=== PATIENT | female | born 2000 | race Caucasian/White ===

== ENCOUNTER 2024-11-17 10:50 | Emergency (ER) | payer OTHER, SELFPAY ==
--- NOTE | ~2024-11-17 | US_ITS ---
US pelvic complete w TV Ordering provider: Noelle Christie PA-C History: . LLQ pain, abnl vag bleeding, hx PCOS . Comparison: None. Technique: Transabdominal and endovaginal ultrasound of the pelvis (Doppler ultrasound interrogation techniques used as needed for this exam.) FINDINGS: CERVIX: Normal. UTERUS: Measures 7.6x 4.7x 3.5 cm in length which is within normal limits and is anteverted. No myom etrial masses. ENDOMETRIUM: Normal in thickness measuring 2.8 mm. (Note: the premenopausal endometrium may measure u p to 16 mm when in the secretory phase.) No endometrial masses, cysts or fluid. CUL DE SAC: No free fluid. RIGHT OVARY: Normal in size measuring 2.6x 2.1x 2.3 cm. Normal echotexture. Doppler vascular flow pre sent. Follicles are noted. LEFT OVARY: Normal in size measuring 2.9x 2.2x 1.8 cm. Normal echotexture. Doppler vascular flow pres ent. Follicles are noted. ADNEXA: Normal. No mass. IMPRESSION: normal pelvic ultrasound. Reviewed, dictated and finalized at location A. IMPRESSION: normal pelvic ultrasound.
--- OUTSIDE RECORDS SUMMARY | 2024-11-17 10:53 | XMS_ITS | Encounter Summary ---
Author Organization [facility] Address [facility] [place] [address] Care Team Providers Care Jeweler Apprentice Name Role Phone Abdi Jaquez CITY PLANNING AIDE-C Primary Care Provider [phone] Judah Joshi MD Primary Care Provider [phone] Sunil Valdovinos PA-C Primary Care Provider [phone] Encounter Details Date Type Department Care Team (Late st Contact Info) Description 10/08/[address] [facility] Conversion [address] [place] [address] , Generic Conversion, Social History Tobacco Use Types Packs/Day Years Used Date Smoking Tobacco: Never Assessed Comments Unknown Sex and Gender Information Value Date Recorded Sex Assigned at Female 06/07/2024 1:24 PM AIR ANTISUBMARINE OFFICER Legal Sex Female 5:55 PM AIR ANTISUBMARINE OFFICER Gender Identity Not on file Sexual Orientation Not on file documented as of this encounter Plan of Treatment Not on file documented as of this encounter Visit Diagnoses Not on filedocumented in this encounter Additional Health Concerns Infection Onset Date Last Indicated Resolved Time COVID-19 Rule Out 03/15/2020 03/15/2020 05/14/2020 12:34 AM AIR ANTISUBMARINE OFFICER COVID-19 Rule Out 05/13/2023 05/13/2023 05/14/2023 10:24 AM AIR ANTISUBMARINE OFFICER COVID-19 Confirmed 05/13/2023 05/13/2023 12:32 AM AIR ANTISUBMARINE OFFICER COVID-19 Rule Out 06/07/2024 06/07/2024 06/07/2024 1:38 PM AIR ANTISUBMARINE OFFICER Influenza - Seasonal 06/07/2024 06/07/2024 025 12:32 AM AIR ANTISUBMARINE OFFICER documented as of this encounter Care Teams Jeweler Apprentice Relationship Specialty Start Date End Date Abdi Jaquez, CITY PLANNING AIDE-C [address] [place] [phone] PCP - General NURSE PRACTITIONER 03/15/20 07/20/22 Judah Joshi MD [address] [place] [phone] PCP - General FAMILY PRACTICE 07/21/22 02/23/23 Sunil Valdovinos PA-C [address] [place] [phone] PCP - General PHYSICIAN REJECTOR 02/24/23 documented as of this encounter
--- OUTSIDE RECORDS SUMMARY | 2024-11-17 10:53 | XMS_ITS | Clinical Summary ---
Author Organization [facility] Address [address] [place] [address] Care Team Providers Care Demand Equipment Repairer Name Role Phone Sunil Valdovinos PA-C Primary Care Provider [phone] Allergies Active Allergy Reactions Criticality Noted Date Comments Cefdinir Rash Low 02/04/2023 Taking for UTI and made symptoms worse, last taken about a year ago Doxycycline Other (see comment) 03/15/2020 Vomiting ears ring Medications amoxicillin (AMOXIL) 500 MG tablet Take 1 tablet (500 mg total) by mouth 2 (two) times daily. Active traMADol (ULTRAM) 50 MG tablet Take 1 tablet (50 mg total) by mouth every 6 (six) hours as needed for Pain. Active oxyCODONE immediate release (ROXICODONE) 5 MG immediate release tabletIndicatio ns:Acute Pain < 7 Day Supply Take 1 tablet (5 mg total) by mouth every 6 (six) hours as needed for Pain. Indications: Acute Pain < 7 Day Supply 28 tablet 5 Active naloxone (NARCAN) 4 MG/0.1ML nasal spray 1 spray by Nasal route as needed for Opioid reversal. may repeat every 2 to 3 minutes in alternating nostrils until medical assistance becomes available 1 each 5 07/11/19 26 Active Active Problems No known active problems Family History Medical History Relation Comments Alcohol/Drug Father Alcohol/Drug Mother Asthma Mother Fibromyalgia Mother Relation Status Comments Father Alive Mother Alive Social History Tobacco Use Types Packs/Day Years Used Date Smoking Tobacco: Never Smokeless Tobacco: Never Tobacco Cessation:Counseling Given: Not Answered Comments:Pt aware not to use marijuana 24hrs prior to dos Alcohol Use Standard Drinks/Week Comments Not Currently 0 (1 standard drink = 0.6 oz pur e alcohol) rare AUDIT-C Answer Date Recorded Q1: How often do you have a drink containing alc ohol? Never 03/15/2020 Average Number of Drinks Not on file 020 Frequency of Binge Drinking Not on file 03/03 Comments No Sex and Gender Information Value Date Recorded Sex Assigned at Female 06/07/2024 1:24 PM LOOM SETTER FOURDRINIER Legal Sex Female 5:55 PM LOOM SETTER FOURDRINIER Gender Identity Not on file Sexual Orientation Not on file Last Filed Vital Signs Vital Sign Reading Time Taken Comments Blood Pressure 135/92 07/10/2024 1:44 PM CDT Pulse 84 07/10/2024 1:54 PM CDT Temperature 36 C (96.8 F) 07/10/2024 12:44 PM CDT Respiratory Rate 18 07/10/2024 1:54 PM CDT Oxygen Saturation 95% 07/10/2024 1:54 PM CDT Inhaled Oxygen Concentration - - Weight 95.3 kg (210 lb) 07/10/2024 8:19 AM CDT Height 160 cm (5' 2.99) 07/10/2024 8:19 AM CDT Body Mass Index 37.21 07/10/2024 8:19 AM CDT Plan of Treatment Health Maintenance Due Date Last Done Comments Cervical Cancer Screening Pap Smear (Age 21 to 29) Every 3 Years 1999 Cervical Cancer Screening 1999 Annual Physical 2002 HPV Vaccines (1 - 3-dose series) 2014 Hepatitis C 2017 COVID-19 Vaccine ( season) 2024 DTaP, Tdap and Td Vaccines (8 - Td or Tdap) 03/22/2024 03/22/2014, 02/10/2013, 02/13/2005, Additional history exists PHQ-2 (Physician [place]) 05/03/2024 Hepatitis B Vaccines Completed 12/02/2000, 12/02/2000, 1999, Additional history exists Meningococcal Vaccine Completed 02/16/2017 Meningococcal B Vaccine Aged Out No l onger eligible based on patient's age to complete this topic Pneumococcal Vaccine: Pediatrics (0 to 5 Years) and At-Risk Patients (6 to 49 Years) Aged Out No longer eligible based on patient's age to complete this topic RSV Immunizations Under 20 Months Aged Out No longer eligible based on patient's age to complete this topic Medical Devices Implanted Type Area Induction Coordination Engineer Device Identifier Shelf Expiration Date Model / Serial / Lot Medartis Gold 1.2mm Cortex Bone Screws Implanted:Qty: 1 on 07/10/2024 by Av Ackerman MD at [facility] Left: Finger [id number] / / N/A Description:LEFT THUMB Gold 1.2mm Cortex Bone Screws Implanted:Qty: 2 on 07/10/2024 by Av Ackerman MD at [facility] Left: Finger [id number]/ / / N/A Description:LEFT THUMB Explanted Type Area Induction Coordination Engineer Device Identifier Shelf Expiration Date Model / Serial / Lot K Wire Osiel 6 In X .035 In - [id number] Explanted:Qty: 1 on 07/10/2024 by Av Ackerman MD at [facility] Wire Left: Finger [employer] 12/19/2033 [id number] / / [id number] Description:LEFT THUMB Insurance [facility] Care Teams Demand Equipment Repairer Relationship Specialty Start Date End Date Sunil Valdovinos PA-C PCP - General PHYSICIAN BEE KEEPER 02/24/23
--- OUTSIDE RECORDS SUMMARY | 2024-11-17 10:53 | XMS_ITS | Clinical Summary ---
Author Organization [facility] Address [address] [place] [address] Care Team Providers Care Chief Librarian Branch Or Department Name Role Phone Ian Farmer DO Primary Care Provider [phone] Source Comments [facility],non-[facility] Affiliates and Associated Physician Practices is amultiple site organization consisting of ambulatory clinics and hospital sitesin [place], [place], [place] and [place]. This disclosure is being madepursuant to the Care Everywhere program and may not contain all information available regarding this patient. Last updated 18.[facility] [employer] Allergies Active Allergy Reactions Criticality Noted Date Comments Doxycycline Ototoxicity 06/05/2015 Ringing in the ears and increased pain Nsaids 05/17/2015 Pt has a R dysfunctional kidney Medications * Be aware that medications may not be up to date on this document. Alwaysverify current medications with the patient. No known medications Social History Tobacco Use Types Packs/Day Years Used Date Smoking Tobacco: Passive Smo ke Exposure - Never Smoker Alcohol Use Standard Drinks/Week Comments Not Asked 0 (1 standard drink = 0.6 oz pur e alcohol) Comments No Sex and Gender Information Value Date Recorded Sex Assigned at Not on file Legal Sex Female 11:33 AM STRAW HAT WASHER OPERATOR Gender Identity Not on file Sexual Orientation Not on file Last Filed Vital Signs Vital Sign Reading Time Taken Comments Blood Pressure 116/70 04/21/2016 2:57 PM STRAW HAT WASHER OPERATOR Pulse 64 05/17/2015 2:11 PM STRAW HAT WASHER OPERATOR Temperature 36.7 C (98 F) 05/17/2015 2:11 PM STRAW HAT WASHER OPERATOR Respiratory Rate 18 05/17/2015 2:11 PM STRAW HAT WASHER OPERATOR Oxygen Saturation - - Inhaled Oxygen Concentration - - Weight 88.5 kg (195 lb 1.7 oz) 04/21/2016 2:57 P M STRAW HAT WASHER OPERATOR Height 162.2 cm (5' 3.86) 04/21/2016 2:57 PM CS T Body Mass Index 33.64 04/21/2016 2:57 PM STRAW HAT WASHER OPERATOR Plan of Treatment Health Maintenance Due Date Last Done Comments HIV SCREENING 2014 HPV VACCINE (1 - 3-dose series) 2014 CHLAMYDIA/GONORRHEA SCREENING 2015 HEPATITIS C SCREENING 06/06/2017 DTAP/TDAP/TD VACCINES (1 - Tdap) 2018 HEPATITIS B VACCINE (1 of 3 - 19+ 3-dose series) 2018 COVID-19 VACCINE (1 - 2023-2 5 season) 2024 DEPRESSION SCREENING 05/03/2024 INFLUENZA VACCINE (#1) 2025 ZOSTER VACCINE (1 of 2) 2049 HIB VACCINE Aged Out No longer eligi ble based on patient's age to complete this topic MENINGOCOCCAL (Group B) VACC INE SHARED DECISION-MAKING Aged Out No longer eligibl e based on patient's age to complete this topic MENINGOCOCCAL GROUPS A/C/Y/W VACCINE Aged Out No longer eligible b ased on patient's age to complete this topic PNEUMOCOCCAL VACCINE Aged Out No long er eligible based on patient's age to complete this topic Insurance MEDICAID - [place] Care Teams Chief Librarian Branch Or Department Relationship Specialty Start Date End Date Ian Farmer DO OIG Sanctioned-Do not use! [place] [phone] PCP - General Family Medicine 06/11/14
[2024-11-17 10:59] VITALS: BP 158/88; PULSE 86; RESP 16; TEMP 36.6; O2SAT 100
--- OUTSIDE RECORDS SUMMARY | 2024-11-17 11:11 | XMS_ITS | Clinical Summary ---
Author Organization [address] Address [facility] [place] [address] Care Team Providers Care Hot Dip Plating Supervisor Name Role Phone Sunil Valdovinos Primary Care Provider [phone] Allergies Active Allergy Reactions Criticality Noted Date Comments Cefdinir Itching Low 02/04/2023 Doxycycline Other (See comments),Vomiting Low 09/08/2019 pain Vomiting ears ring Medications acetaminophen (TYLENOL) 325 mg tablet Take 2 tablets (650 mg total) by mouth every 6 (six) hours as needed for pain or headaches Active albuterol HFA (PROVENTIL HFA,VENTOLIN HFA,PROAIR HFA) 90 mcg/actuation inhalerIndications :Acute Asthma Attack Inhale 1 puff every 6 (six) hours as needed for shortness of breath or wheezing Active omeprazole (PriLOSEC) 40 mg capsuleIndications :gastroesophageal reflux disease Take 1 capsule (40 mg total) by mouth daily as needed Active traMADoL (ULTRAM) 50 mg tabletIndications: Pain Take 1 tablet (50 mg total) by mouth every 4 (four) hours as needed for pain (Chronic kidney disease) None in over a month 02/05/20 23 Active ondansetron ODT (ZOFRAN-ODT) 4 mg disintegrating tabletIndications: Nausea and Vomiting Take 2 tablets (8 mg total) by mouth every 8 (eight) hours as needed for nausea or vomiting (may take 1 or 2 tabs) 20 tablet 08/19/19 24 Active polyethylene glycol (MIRALAX) 17 gram packetIndications: constipation Take 1 packet (17 g total) by mouth 2 (two) times a day 30 packet 08/19/19 24 Active senna (SENOKOT) 8.6 mg tablet Take 2 tablets by mouth 2 (two) times a day as needed for constipation 30 tablet 08/19/19 24 Active oxyCODONE (ROXICODONE) 5 mg immediate release tabletIndications: Pain May take 1 or 2 tabs every 6 hours as needed for pain for 5 days 12 tablet 08/19/19 24 Active phenazopyridine (PYRIDIUM) 100 mg tabletIndications: Dysuria Take 1 tablet (100 mg total) by mouth 3 (three) times a day as needed for urinary pain 12 tablet 10/26/19 24 Active trospium XR (SANCTURA XR) 60 mg capsule,extended release 24hr Take 1 capsule (60 mg total) by mouth daily before breakfast 30 capsule 5 09/01/19 25 025 Active mirabegron ER (MYRBETRIQ) 50 mg tablet extended release 24 hr Take 1 tablet (50 mg total) by mouth daily 30 tablet 1 09/01/19 25 Active Active Problems Problem Noted Date Diagnosed Date Pyelonephritis 08/19/2023 Complicated UTI (urinary tract infection) 2023 Assessment & Plan (08/18/2023 10:39 AM CDT): Patient with history of recurrent UTI's, though no prior culture data in our system. Follows with urology outpatient for this. Has had multiple recent Abx courses. Developed worsened flank pain, nausea, and dysuria following ureteral stent placement 08/15. Patient afebrile, HDS. Has leukocytosis and UA c/f UTI. - continue Zosyn for now - f/u UCx Syncope 08/17/2023 Assessment & Plan (08/18/2023 1:45 PM CDT): Patient with episode of syncope yesterday in OSH ED triggered by pain. Episode witnessed. No seizure-like activity. No preceding chest pain or palpitations. Suspect vasovagal. - continue to monitor - near syncopal episode 08/17 afternoon, likely vasovagal. Placed on tele x 24 hours Flank pain 07/23/2023 Assessment & Plan (08/17/2023 9:23 PM CDT): Patient with history of chronic right flank pain p/w worsened flank pain following ureteral stent placement 08/15. Patient afebrile, HDS. UA c/f UTI. Renal US without hydronephrosis. XRAY Abdomen with stent in place. Possibly exacerbated in the setting of infection vs stent intolerance. - urology consulted: recommending renal lasix scan to rule out obstruction; anticipate stent removal outpatient once acute infection treated - treatment of UTI as elsewhere - continue home flomax, ditropan, and pyridium Acute flank pain 03/03/2023 PCOS (polycystic ovarian syndrome) 09/08/2019 Type 2 diabetes mellitus without complications 0 09/08/2019 Assessment & Plan (08/17/2023 9:23 PM CDT): Previously on metformin, but has not required medications in over a year. - check A1c Encounters Date Type Department Care Team Description 08/31/2024 11:20 AM CDT Office Visit [facility] ([facility] - [facility] Urology [address] [facility] 11[address] [place] [address] [place] [address] Dolores Davison MD Urgency of urination (Primary Dx); Urinary frequency from Last 3 Months Surgical History Surgery Date Site/Laterality Comments TONSILLECTOMY 05/03/2004 - 05/02/2005 TUBAL LIGATION 12/01/2021 - 12/31/2021 Medical History Medical History Date Comments Renal disorder Chronic kidney failure Diabetes mellitus (HCC) PONV (postoperative nausea and vomiting) Motion sickness Social History Tobacco Use Types Packs/Day Years Used Date Smoking Tobacco: Never Passive Smoke Exposure: Current Smokeless Tobacco: Never Tobacco Cessation:Counseling Given: Not Answered Passive Exposure Comments:Parents smoked / vapes AUDIT-C Answer Date Recorded Q1: How often do you have a drink containing alc ohol? Monthly or less 07/30/2023 Q2: How many drinks containi ng alcohol do you have on a typical day when you are drinking? 1 or 2 07/30/2023 Q3: How often do you have si x or more drinks on one occasion? Never 07/30/2023 Personal Safety Answer Date Recorded Have you ever been in or are you currently in a harmful physical or emotional relationship or is someone making you feel afraid or unsafe? Denies 08/17/2023 Comments No Sex and Gender Information Value Date Recorded Sex Assigned at Not on file Legal Sex Female 8:24 AM SYSTEMS QA ANALYST Gender Identity Not on file Sexual Orientation Not on file Obstetrics History Last Filed Vital Signs Vital Sign Reading Time Taken Comments Blood Pressure 109/63 08/19/2023 2:10 PM CDT Pulse 51 08/19/2023 2:10 PM CDT Temperature 37 C (98.6 F) 08/19/2023 2:10 PM CDT Respiratory Rate 18 08/19/2023 2:10 PM CDT Oxygen Saturation 100% 08/19/2023 2:10 PM CDT Inhaled Oxygen Concentration - - Weight 103.4 kg (227 lb 14.4 oz) 08/17/2023 7:30 PM CDT Height 160 cm (5' 3) 08/17/2023 7:30 PM CDT Body Mass Index 40.37 08/17/2023 7:30 PM CDT Plan of Treatment Health Maintenance Due Date Last Done Comments Albumin Creatinine Ratio, Urine 1999 Cervical Cancer Screening 1999 Depression Screening 1999 Hepatitis C Screening 1999 Dilated Eye Exam 1999 Foot Exam 1999 Lipid Panel 1999 HPV Vaccines (1 - 3-dose series) 2014 Regular Well Visit/Exam 18-64 2017 Pneumococcal vaccine <65 (1 of 2 - PCV) 2018 Hemoglobin A1C 02/16/2024 08/17/2023, 08/17/2023 DTaP/Tdap/Td Vaccine (8 - Td or Tdap) 03/22/2024 03/22/2014, 02/10/2013, 02/13/2005, Additional history exists eGFR 08/17/2024 08/18/2023, 08/01, 08/17/2023 Influenza Vaccine (Season Ended) 2025 Hepatitis B Screening Completed 12/02/2000 , 12/02/2000, 1999, Additional history exists Varicella Vaccines Completed 03/22/2014, 02/13/2005 Medical Devices Implanted Type Area Pick Up Truck Driver Device Identifier Shelf Expiration Date Model / Serial / Lot [employer] [id number] 6fr 24cm 145cm Radiopaque Positioner Filiform Flexible Tip - [id number] Implanted:Qty: 1 on 08/16/2023 by Dolores Davison MD at [facility] Stent Right: Ureter [employer] [id number] 04/19/2026 [id number] / / [id number] Procedures Procedure Name Priority Date/Time Associated Diagnosis Comments EGFR Routine 08/18/2023 9:00 PM CDT HEMOGLOBIN A1C STAT 08/17/2023 12:48 PM CDT from Last 3 Months or Most Recently Relevant to Health Maintenance Results * eGFR (08/18/2023 9:00 PM CDT) eGFR >90 >=60 mL/min/1. 73 m2 Comment: Interpretive Data Reference Interval Normal >/= 90 mL/min/1.73m2 Mildly decreased* 60 - 89 mL/min/1.73m2 Mildly to moderately decreased 45 - 59 mL/min/1.73m2 Moderately to severely decreased 30 - 44 mL/min/1.73m2 Severely decreased 15 - 29 mL/min/1.73m2 Kidney Failure < 15 mL/min/1.73m2 *Relative to young adult level Estimated glomerular filtration rate is determined by the 2020 CKD-EPI equation recommended by the National Kidney Foundation (A Unifying Approach to GFR Estimation: Recommendations of the NKF-ASK Task Force on Reassessing the Inclusion of Race in Diagnosing Kidney Disease, JASN 2020). The CKD-EPI equation should not be used for patients with unstable renal function and has not been validated in children and those over 70. Current interpretive data was last reviewed 2021. Blood 08/18/2023 9:00 PM CDT 08/18/2023 9:20 PM CDT Adela TIPTON LAB BLOOD ORDERABLES Nelly l Result [facility] Department of Laboratories [place], [place] [id number] * (ABNORMAL) Hemoglobin A1c (08/17/2023 12:48 PM CDT) Hgb A1C 5.7(H) 4.0 - 5.6 % Estimated Average Glucose 117 mg/dL [facility] Comment: The ADA recommends reporting an estimated Average Glucose (eAG) with all Hemoglobin A1c results using the equation derived from a study of 507 normal and diabetic adults. Minority populations were underrepresented and children were not included. (Diabetes Care 2020; 43(S1): S66-S76). The eAG is not equivalent to a fasting glucose. Blood 08/17/2023 12:4 8 PM CDT 08/17/2023 1:14 PM CDT Feli Hua MD LAB BLOOD ORDERABLES Fi nal Result [facility] Department [place] [address] from Last 3 Months or Most Recently Relevant to Health Maintenance Insurance [facility] Advance Directives For more information, please contact: [phone] * Full Code (Latest Code Status on File) Date Activated Date Inactivated Comments 08/17/2023 8:02 PM 08/19/2023 9:22 PM Care Teams Hot Dip Plating Supervisor Relationship Specialty Start Date End Date Sunil Valdovinos PA [address] [place] [address] PCP - General Physician Tutoring Clinician 06/11/23
--- OUTSIDE RECORDS SUMMARY | 2024-11-17 11:11 | XMS_ITS | Referral Summary ---
Author Organization [place] [id number] [facility] Address [facility] [place] [address] Care Team Providers Care Music Publicist Name Role Phone Sunil Valdovinos Primary Care Provider Encounters Date Type Department Care Team Description 08/31/2024 11:20 AM CDT Office Visit [facility]) [facility] Urology [address] [facility] 11th [place] [address] [place] [address] Dolores Davison MD Urgency of urination (Primary Dx); Urinary frequency from Last 3 Months Allergies Active Allergy Reactions Criticality Noted Date [...] in over a year. - check A1c Social History Tobacco Use Types Packs/Day Years [...] on file Legal Sex Female 8:24 AM GOVERNMENT CLERK Gender Identity Not on file Sexual Orientation [...] 08/17/2023 7:30 PM CDT Plan of Treatment Not on file Medical Devices Implanted Type Area Hydraulic Barker Operator Device Identifier Shelf Expiration Date Model / Serial / Lot [employer] [id number] 6fr 24cm 145cm Radiopaque Positioner Filiform Flexible Tip - [id number] Implanted:Qty: 1 on 08/16/2023 by Dolores Davison MD at [facility] Stent Right: Ureter [employer] [id number] 04/19/2026 [id number] / / [id number] Procedures Procedure Name Priority Date/Time Associated Diagnosis [...] of Race in Diagnosing Kidney Disease, JASN 202). The CKD-EPI equation should not be used for patients with unstable renal function and has not been validated in children and those over 70. Current interpretive data was last reviewed 2021. Blood 08/18/2023 9:00 PM CDT 08/18/2023 9:20 PM CDT Adela TIPTON LAB BLOOD ORDERABLES Nelly l Result Performing Organization Address [facility] de Phone Number [facility] [place] [address] * (ABNORMAL) Hemoglobin A1c (08/17/2023 12:48 PM CDT) Hgb A1C 5.7(H) 4.0 - 5.6 % Estimated Average Glucose 117 mg/dL [facility] Comment: The ADA recommends reporting an estimated [...] MD LAB BLOOD ORDERABLES Fi nal Result Performing Organization Address [facility] Co de Phone Number [facility] [place] [address] from Last 3 Months or Most Recently Relevant to Health Maintenance Insurance Member Subscriber Plan / Payer (Ef fective 2018-Present) Name:Margo Ashlie Andersen Relation to Subscriber:Child Name:MEGHA MENDIETA Date of :1980 (Home) Address: [address] [place] [address] Payer ID:[id number] (NAIC) Type:[facility] HMO/PPO Address: [place] [phone] Advance Directives For more information, please contact: [phone] * Full Code (Latest Code Status on File) Date Activated Date Inactivated Comments 08/17/2023 8:02 PM 08/19/2023 9:22 PM Care Teams Music Publicist Relationship Specialty Start Date End Date Sunil Valdovinos PA [address] [place] [address] PCP - General Physician Organizational Psychologist 06/11/23
[2024-11-17 11:12] LABS: BEDSIDEPREGUCG Negative (Negative)
[2024-11-17 11:25] LABS: Add Urine Microscopic? YES; Appearance Urine Clear (Clear); Glucose Urine UA Negative (Negative); Leukocyte Esterase Ur Trace LEU/UL (Negative); Nitrate Urine Negative (Negative); Non Pathogenic Casts 0-2; Specific Grav Ur 1.008 (1.001-1.035)
[2024-11-17] MEDS: ONDANSETRON HCL ODT 4 MG TABLET PO (11:33)
[2024-11-17] MEDS: ACETAMINOPHEN 500 MG TABLET 1000 MG PO (11:43)
--- NOTE | 2024-11-17 11:46 | ED_ITS ---
HPI - Female Genitourinary General Chief complaint: Vaginal Bleeding Stated complaint: vaginal bleeding Time Seen by Provider: 11/17/24 10:50 Source: patient Mode of arrival: ambulatory Limitations: no limitations History of Present Illness HPI Narrative: Patient is a 24-year-old female who presents the ED with report of abnormal vaginal bleeding. Patient reports history of PCOS and previous tubal ligation 2021. She reports she has not had a normal menstrual cycle in the past 2.5 months. Had some spotting in August, no cycle in October. She took a few test last week which were positive. She then had a blood test performed which was negative. She is scheduled to follow-up with OB next week. She began having vaginal bleeding 2 days ago which has been fairly heavy. She also reports having some pain throughout lower abdomen. She contacted the OB about this and was referred to the ED for ultrasound. Patient reports mild nausea. Denies significant dizziness or lightheadedness, syncope. Related Data Allergies Allergy/AdvReac Type Severity Reaction Status Date / Time cefdinir Allergy Unknown Rash Verified 11/17/24 11:04 doxycycline Allergy Unknown Rash Verified 11/17/24 11:04 Review of Systems 2 Review of Systems: All systems reviewed & are unremarkable except as noted in HPI. All systems reviewed & are unremarkable except as noted in HPI and below Exam 2 Narrative: GENERAL: Well appearing, obese with BMI of 37.6, non-toxic, in no acute distress. HEAD: Normocephalic, atraumatic. RESPIRATORY: Airway patent, respirations nonlabored. Clear to auscultation bilaterally, no rales, rhonchi, wheezing. CARDIOVASCULAR: Regular rate and rhythm without murmurs, rubs, or gallops. ABDOMINAL: Soft, mild diffuse tenderness throughout lower abdomen, worst in LLQ, nondistended. Normoactive BS. MUSCULOSKELETAL: Moves all extremities. No gross deformities. SKIN: Warm, dry, normal color. NEURO: A&O X3. Speech clear. No ataxic movements. PSYCHIATRIC: Appropriate mood and affect. Normal interaction. Course Vital Signs Vital signs: Vital Signs Temperature 97.9 F 11/17/24 10:59 Pulse Rate 86 11/17/24 10:59 Respiratory Rate 16 11/17/24 10:59 Blood Pressure 158/88 H 11/17/24 10:59 Pulse Oximetry 100 11/17/24 10:59 Oxygen Delivery Room Air 07/18/25 10:59 Temperature 97.9 F 11/17/24 14:12 Pulse Rate 80 11/17/24 14:12 Respiratory Rate 16 11/17/24 14:12 Blood Pressure 126/78 11/17/24 14:12 Pulse Oximetry 100 11/17/24 14:12 Oxygen Delivery Room Air 11/17/24 10:59 MDM - Female Genitourinary MDM Narrative Medical decision making narrative: Patient presented to ED with abnormal vaginal bleeding. History of PCOS and previous tubal ligation. Reported home positive test last week. Reports pain throughout left lower quadrant. Vital signs are stable upon arrival. Patient is in no acute distress. Laboratory studies are reassuring. No leukocytosis or anemia. Stable coags. CMP unremarkable. Beta hCG is negative at less than 2.39. UA is w/o signs of infection. Pelvic US is unremarkable. No evidence of torsion or large ovarian cysts. Discussed lab and imaging findings with patient. Overall reassuring workup. Advised likely abnormal menstrual cycle. Unclear etiology. Will be discharged at this time, advised to continue to monitor bleeding, have close follow-up with OBGYN at her appointment next week. She is in agreement with plan. Given return precautions. D/C in stable condition. Medical Records Attestation: I reviewed the patient's medical records. Lab Data Attestation: I reviewed the patient's lab results. 11/17/24 11:35 11/17/24 11:35 Labs: Lab Results 11/17/24 11/17/24 11/17/24 Range/Units 11:10 11:15 11:35 WBC 9.3 (4.5-10.0) K/mm3 RBC 4.51 (4.2-5.4) M/mm3 Hgb 12.9 (12.0-15.0) g/dL Hct 39.1 (37.0-47.0) % MCV 86.7 (80-100) fl MCH 28.6 (26-34) pg MCHC 33.0 (32-36) g/dl RDW 13.4 (11.5-14.5) % Plt Count 354 (150-375) k/mm3 MPV 9.6 (7.4-10.4) fl Immature Gran % (Auto) 0.2 (0-0.5) % Neut % (Auto) 61.0 (45.5-73.1) % Lymph % (Auto) 28.8 (18.3-44.2) % [place] % (Auto) 7.2 (2.6-8.5) % Eos % (Auto) 2.5 (0-4.4) % Baso % (Auto) 0.3 (0.2-1.2) % Lymph # (Auto) 2.68 (0.9-3.2) K/mm3 [place] # (Auto) 0.7 H (0.1-0.6) K/mm3 Eos # (Auto) 0.2 (0-0.3) K/mm3 Baso # (Auto) 0.0 (0.0-0.1) K/mm3 Abs Immat Gran (auto) 0.02 (0.00-0.031) K/mm3 Absolute Neuts (auto) 5.7 (1.3-6.7) K/mm3 Absolute Nucleated RBC 0.000 (0.0-0.012) K/mm3 Nucleated RBC % 0.0 (0.0-0.2) % PT 13.0 (11.1-14.7) Seconds INR 1.0 APTT 26.5 (22.3-36.8) Seconds Sodium 141 (137-145) mmol/L Potassium 4.1 (3.4-5.0) mmol/L Chloride 109 H (98-107) mmol/L Carbon Dioxide 23 (22-30) mmol/L Anion Gap 9 (4-12) mmol/L BUN 8 (7-17) mg/dL Creatinine 0.64 L (0.7-1.0) mg/dL Estim Creat Clear Calc 127 ml/min Estimated GFR > 60 (59 - ) Glucose 111 H (65-110) mg/dL Calcium 9.6 (8.4-10.2) mg/dL Total Bilirubin 0.1 L (0.2-1.3) mg/dL AST 22 (14-36) U/L ALT 17 (6-35) U/L Alkaline Phosphatase 45 (38-126) U/L Total Protein 7.9 (6.3-8.2) g/dL Albumin 4.2 (3.5-5.1) g/dL Beta HCG, Quant < 2.39 mIU/ML Urine Color Yellow (Yellow) Urine Appearance Clear (Clear) Urine pH 5.5 (5.0-9.0) Ur Specific [place] 1.008 (1.001-1.035) Urine Protein Negative (Negative) mg/dL Urine Glucose (UA) Negative (Negative) mg/dL Urine Ketones Negative (Negative) mg/dL Ur Blood (Man) 2+ H (Negative) Urine Nitrate Negative (Negative) Urine Bilirubin Negative (Negative) Urine Urobilinogen 0.2 (<2.0) mg/dL Leukocyte Esterase Rfl Trace H (Negative) ALIYAH/UL Urine RBC 0-2 (0-2) /hpf Urine WBC 0-5 (0-3) /hpf Ur Squamous Epith Cells None seen (Few) /hpf Urine Bacteria None seen /hpf Urine Casts 0-2 POC Urine HCG, Qual Negative (Negative) Blood Type A Negative Antibody Screen Negative Screen Not Reportable Baby's Blood Type Not Reportable Baby's EVELIA Not Reportable Doses of RhIg Required 0 Imaging Data Attestation: I personally reviewed and interpreted this imaging study as follows: Radiologist's impression: ITS Impressions Pelvic/Transvag US 11/17/24 13:27 IMPRESSION: normal pelvic ultrasound. Discharge Plan Discharge Clinical Impression: Dysfunctional uterine bleeding Patient Disposition: Home Condition: Stable Instructions: Antibiotic Form, Abnormal (Dysfunctional) Uterine Bleeding (ED), Dysmenorrhea (ED) Additional Instructions: Continue to monitor bleeding. Stay well hydrated. Follow-up with your OBGYN for further evaluation. Continue Tylenol/ibuprofen as needed for pain. Zofran as needed for nausea. Return to the ED if you experience worsening or severe pain, severe bleeding, passing out, or any other symptoms of concern. Patient Language: [place] Citizen Prescriptions: New ondansetron 4 mg tablet,disintegrating 4 mg PO Q8H PRN (Reason: nausea and vomiting) Qty: 15 0RF Follow-up/Referrals: PHYSICIAN NOT ON STAFF,NONSTAFF [Primary Care Provider] - Stand Alone Forms: Work/School Release IP Time of Disposition: 14:04
[2024-11-17 11:51] LABS: Hematocrit 39.1 % (37.0-47.0); Hemoglobin 12.9 g/dL (12.0-15.0); Immature Granulocyte Percent A 0.2 % (0-0.5); Lymphocytes Absolute Auto 2.68 K/mm3 (0.9-3.2); Mean Corpuscular HGB Conc 33.0 g/dl (32-36); Mean Corpuscular Hemoglobin 28.6 pg (26-34); Mean Corpuscular Volume 86.7 fl (80-100); Nucleated Red Blood Cells Absolute Auto 0.000 K/mm3 (0.0-0.012); Nucleated Red Blood Cells Perc 0.0 % (0.0-0.2); Platelet Count Result 354 k/mm3 (150-375); Red Blood Count 4.51 M/mm3 (4.2-5.4); White Blood Count 9.3 K/mm3 (4.5-10.0)
[2024-11-17 12:03] LABS: INR 1.0; Partial Thromboplastin Time 26.5 Seconds (22.3-36.8); Prothrombin Time 13.0 Seconds (11.1-14.7)
[2024-11-17 12:11] LABS: Alanine Aminotransferase 17 U/L (6-35); Albumin Level 4.2 g/dL (3.5-5.1); Alkaline Phosphatase 45 U/L (38-126); Aspartate Amino Transferase 22 U/L (14-36); Bilirubin,Total 0.1 mg/dL (0.2-1.3); Blood Urea Nitrogen 8 mg/dL (7-17); Calcium 9.6 mg/dL (8.4-10.2); Carbon Dioxide 23 mmol/L (22-30); Estimated CRCL calculation 127 ml/min; Estimated Glomerular Filt Rate > 60; Glucose 111 mg/dL (65-110); Total Protein 7.9 g/dL (6.3-8.2)
[2024-11-17 12:28] LABS: Beta HCG Quantitative < 2.39 mIU/ML
[2024-11-17 12:32] LABS: Anion Gap 9 mmol/L (4-12); Chloride 109 mmol/L (98-107); Potassium 4.1 mmol/L (3.4-5.0); Sodium 141 mmol/L (137-145)
[2024-11-17 13:00] VITALS: BP 128/80; PULSE 82; RESP 16; TEMP 36.6; O2SAT 100
[2024-11-17 14:12] VITALS: BP 126/78; PULSE 80; RESP 16; TEMP 36.6; O2SAT 100
== END 2024-11-17 14:14 | disposition home or self-care (01) ==
PROVIDERS: Emergency Provider Physician Assistant
DX: N93.8 Other specified abnormal uterine and vaginal bleeding (principal); E28.2 Polycystic ovarian syndrome
CPT/HCPCS: 36415; 76830; 76856; 80053; 81001; 81025; 84702; 85025; 85461; 85610; 85730; 86850; 86900; 86901; 99284; A9270